=== PATIENT | female | born 1970 | race Caucasian/White ===

== ENCOUNTER 2020-06-10 13:24 | Inpatient (IN) ==
[2020-06-10] MEDS ORDERED: ONDANSETRON 4 MG/2 ML VIAL IV STA (13:31)
[2020-06-10] MEDS ORDERED: MORPHINE 4 MG/1 ML VIAL IV STA (13:31)
[2020-06-10] MEDS ORDERED: SODIUM CHLORIDE 0.9% 1,000 ML IV STA (13:31)
[2020-06-10 13:57] LABS: Basophils % 0.2 % (0.0-0.8); Eosinophils # 0.1 10*3/uL (0.0-0.87); Eosinophils % 0.4 % (0.00-10.9); Hematocrit 29.9 VOL% (35.7-47.0); Hemoglobin 9.4 GM/DL (12.0-16.0); Immature Granulocytes % 0.4 %; Immature Granulocytes Absolute 0.06 #; Lymphocytes # 1.7 10*3/uL (1.4-4.0); Lymphocytes % 12.7 % (21.3-54.2); Mean Corpuscular HGB Conc 31.4 GM/DL (32-36); Mean Corpuscular Volume 76.5 FL (87-102); Monocytes % 10.8 % (1.7-12.7); Neutrophils % 75.5 % (38.7-73.9); Platelet Count 577 T/CUMM (130-400); Red Blood Count 3.91 MC/CUMM (3.8-5.5); Red Cell Distribution Width 16.4 % (9.3-17.3); White Blood Count 13.4 T/CUMM (4-12)
[2020-06-10 14:20] LABS: Albumin 2.4 G/DL (3.4-5.0); Bilirubin,Total 0.8 MG/DL (0.2-1.0); Calcium 8.4 MG/DL (8.5-10.1); Osmolality,Calculated 259.7 MOS/KG (273-304); Potassium 3.2 MMOL/L (3.5-5.1); Total Protein 7.6 G/DL (6.4-8.3)
[2020-06-10] MEDS ORDERED: PIPERACILLIN/TAZOBACTAM 3,375 MG in SODIUM CHLORIDE 0.9% 100 ML IV STA (15:28)
[2020-06-10] MEDS ORDERED: GLUCAGON 1 MG VIAL IM PRN (15:36)
[2020-06-10] MEDS ORDERED: DEXTROSE 50% 25 GM/50 ML VIAL IV PRN (15:36)
[2020-06-10 15:41] LABS: Amorphous Crystals,Urine Occasional /HPF (Few); Bacteria,Urine Moderate /HPF (Few); Bilirubin,Urine Negative (Negative); Blood, Urine Small mg/dL (Negative); Glucose,Urine (UA) Negative (Negative); Ketones,Urine Negative (Negative); Nitrite,Urine Negative (Negative); Protein,Urine Negative; RBC,Urine 1 /HPF (0-4); Squamous Epithelial Cell,Urine Occasional /HPF (0-10); Urine Appearance Slightly Hazy (Clear); Urine Color Yellow (Yellow); Urine Specific Gravity 1.001 (1.001-1.035); Urine Urobilinogen < 2.0 EU/DL (0.2-1.0); WBC,Urine 14 /HPF (0-6)
[2020-06-10] MEDS ORDERED: NICOTINE 7 MG/24 HR PATCH TRANSDERM PRN (16:42)
[2020-06-10] MEDS: ENOXAPARIN 40 MG/0.4 ML SYRINGE SUBCUT SCH (18:19)
[2020-06-10] MEDS: SODIUM CHLORIDE 0.9% 1,000 ML IV SCH (18:19)
[2020-06-10] MEDS: FLUCONAZOLE INJ 200 MG in PREMIX 1 EACH IV SCH (18:19)
[2020-06-10] MEDS: MORPHINE 4 MG/1 ML VIAL IV PRN ×2 (18:20→22:21)
[2020-06-10] MEDS ORDERED: ALPRAZolam 0.5 MG TABLET PO SCH (21:00)
[2020-06-10] MEDS: busPIRone 10 MG TABLET PO SCH (21:02)
[2020-06-10] MEDS: GABAPENTIN 400 MG CAPSULE PO SCH (21:03)
[2020-06-10] MEDS: ONDANSETRON 4 MG/2 ML VIAL IV PRN (21:05)
[2020-06-11] MEDS: PIPERACILLIN/TAZOBACTAM 3,375 MG in SODIUM CHLORIDE 0.9% 100 ML IV SCH ×3 (01:06→20:21)
[2020-06-11] MEDS: MORPHINE 4 MG/1 ML VIAL IV PRN ×4 (03:10→20:21)
[2020-06-11] MEDS: SODIUM CHLORIDE 0.9% 1,000 ML IV SCH ×3 (04:18→22:22)
[2020-06-11 06:26] LABS: Basophils % 0.2 % (0.0-0.8); Eosinophils # 0.1 10*3/uL (0.0-0.87); Eosinophils % 1.1 % (0.00-10.9); Hematocrit 29.9 VOL% (35.7-47.0); Hemoglobin 9.2 GM/DL (12.0-16.0); Immature Granulocytes % 0.6 %; Immature Granulocytes Absolute 0.06 #; Lymphocytes # 1.7 10*3/uL (1.4-4.0); Lymphocytes % 17.1 % (21.3-54.2); Mean Corpuscular HGB Conc 30.8 GM/DL (32-36); Mean Corpuscular Volume 78.5 FL (87-102); Mean Platelet Volume 9.8 FL (9.6-12.0); Platelet Count 637 T/CUMM (130-400); Red Blood Count 3.81 MC/CUMM (3.8-5.5); Red Cell Distribution Width 16.7 % (9.3-17.3); White Blood Count 9.9 T/CUMM (4-12)
[2020-06-11 07:05] LABS: Albumin 2.3 G/DL (3.4-5.0); Bilirubin,Total 0.8 MG/DL (0.2-1.0); Calcium 8.3 MG/DL (8.5-10.1); Osmolality,Calculated 270.7 MOS/KG (273-304); Potassium 3.1 MMOL/L (3.5-5.1); Total Protein 7.3 G/DL (6.4-8.3)
[2020-06-11 07:11] LABS: Folate 9.3 NG/ML (5.38-24.0); Vitamin B12 477 PG/ML (211-911)
[2020-06-11 07:39] LABS: Sedimentation Rate-Westergren 86 MM/HR (0-20)
[2020-06-11] MEDS: ONDANSETRON 4 MG/2 ML VIAL IV PRN ×2 (07:53→19:44)
[2020-06-11] MEDS ORDERED: PANTOPRAZOLE 40 MG TABLET PO SCH (09:00)
[2020-06-11] MEDS: PANTOPRAZOLE 40 MG TABLET PO SCH (09:17)
[2020-06-11] MEDS: GABAPENTIN 400 MG CAPSULE PO SCH ×3 (09:17→20:20)
[2020-06-11] MEDS: busPIRone 10 MG TABLET PO SCH ×2 (09:17→20:21)
[2020-06-11] MEDS: POTASSIUM CHLORIDE RIDER 10 MEQ in PREMIX 1 EACH IV PRN ×3 (09:17→15:32)
[2020-06-11] MEDS: tiZANidine 4 MG TABLET PO PRN ×2 (09:55→20:21)
[2020-06-11 09:59] LABS: Hemoglobin A1 (Alkaline) 97.3 % (96.5-98.5); Hemoglobin A2 (Alkaline) 2.7 % (1.5-3.5)
[2020-06-11] MEDS: ALPRAZolam 0.5 MG TABLET PO SCH (10:06)
[2020-06-11] MEDS ORDERED: POTASSIUM CHLORIDE 20 MEQ TABLET PO ONE (16:49)
[2020-06-11] MEDS: ENOXAPARIN 40 MG/0.4 ML SYRINGE SUBCUT SCH (20:20)
[2020-06-11] MEDS: FLUCONAZOLE INJ 200 MG in PREMIX 1 EACH IV SCH (22:23)
[2020-06-12] MEDS: MORPHINE 4 MG/1 ML VIAL IV PRN ×3 (01:02→09:45)
[2020-06-12] MEDS ORDERED: ALPRAZolam 0.5 MG TABLET PO ONE (05:11)
[2020-06-12] MEDS: PIPERACILLIN/TAZOBACTAM 3,375 MG in SODIUM CHLORIDE 0.9% 100 ML IV SCH (05:15)
[2020-06-12 05:57] LABS: Basophils % 0.2 % (0.0-0.8); Eosinophils # 0.1 10*3/uL (0.0-0.87); Eosinophils % 1.6 % (0.00-10.9); Hematocrit 26.1 VOL% (35.7-47.0); Hemoglobin 8.3 GM/DL (12.0-16.0); Immature Granulocytes % 0.7 %; Immature Granulocytes Absolute 0.06 #; Lymphocytes # 1.9 10*3/uL (1.4-4.0); Lymphocytes % 21.5 % (21.3-54.2); Mean Corpuscular HGB Conc 31.8 GM/DL (32-36); Mean Corpuscular Volume 77.2 FL (87-102); Monocytes % 9.1 % (1.7-12.7); Neutrophils % 66.9 % (38.7-73.9); Platelet Count 535 T/CUMM (130-400); Red Blood Count 3.38 MC/CUMM (3.8-5.5); Red Cell Distribution Width 16.8 % (9.3-17.3); White Blood Count 8.6 T/CUMM (4-12)
[2020-06-12 06:08] LABS: Calcium 7.7 MG/DL (8.5-10.1); Osmolality,Calculated 265.1 MOS/KG (273-304); Potassium 3.6 MMOL/L (3.5-5.1)
[2020-06-12] MEDS ORDERED: MAGNESIUM SULF RIDER 4 GM in PREMIX 1 EACH IV ONE (07:38)
[2020-06-12] MEDS: PANTOPRAZOLE 40 MG TABLET PO SCH (08:41)
[2020-06-12] MEDS: busPIRone 10 MG TABLET PO SCH (08:41)
[2020-06-12] MEDS: GABAPENTIN 400 MG CAPSULE PO SCH (08:41)
[2020-06-12] MEDS: ALPRAZolam 0.5 MG TABLET PO SCH (08:41)
[2020-06-12 12:00] VITALS: BP 115/67
[2020-06-12] MEDS ORDERED: CEFUROXIME 500 MG TABLET PO SCH (21:00)
== END 2020-06-12 12:24 | disposition left against medical advice (07) | DRG 244 ==
LOC: EDBD → EDUNIT# → N.ED 13:24 → N.EDINP 15:36 → SUATTDRO 15:36 → N.EDINP 16:57 → N.5E 17:12
PROVIDERS: ADMIT Internal Medicine; ATTEND Internal Medicine

== ENCOUNTER 2020-07-31 07:21 | Inpatient (IN) ==
[2020-07-31] MEDS ORDERED: ONDANSETRON 4 MG/2 ML VIAL IV STA (07:44)
[2020-07-31] MEDS ORDERED: HYDROmorphone 2 MG/1 ML VIAL IV STA (07:44)
[2020-07-31] MEDS ORDERED: SODIUM CHLORIDE 0.9% 1,000 ML IV STA (07:44)
[2020-07-31] MEDS ORDERED: PIPERACILLIN/TAZOBACTAM 3,375 MG in SODIUM CHLORIDE 0.9% 100 ML IV STA (07:44)
[2020-07-31 08:29] LABS: Basophils % 0.5 % (0.0-0.8); Eosinophils # 0.2 10*3/uL (0.0-0.87); Eosinophils % 2.7 % (0.00-10.9); Hematocrit 28.3 VOL% (35.7-47.0); Hemoglobin 8.9 GM/DL (12.0-16.0); Immature Granulocytes % 0.5 %; Lymphocytes # 1.4 10*3/uL (1.4-4.0); Mean Corpuscular HGB Conc 31.4 GM/DL (32-36); Mean Corpuscular Volume 75.9 FL (87-102); Mean Platelet Volume 8.8 FL (9.6-12.0); Monocytes % 9.6 % (1.7-12.7); Neutrophils % 69.7 % (38.7-73.9); Platelet Count 532 T/CUMM (130-400); Red Blood Count 3.73 MC/CUMM (3.8-5.5); Red Cell Distribution Width 17.5 % (9.3-17.3); White Blood Count 8.1 T/CUMM (4-12)
[2020-07-31 08:30] LABS: Immature Granulocytes Absolute 0.04 #
[2020-07-31 08:32] LABS: Bacteria,Urine Many /HPF (Few); Bilirubin,Urine Negative (Negative); Blood, Urine Moderate mg/dL (Negative); Glucose,Urine (UA) Negative (Negative); Ketones,Urine Negative (Negative); Nitrite,Urine Negative (Negative); Protein,Urine Negative; RBC,Urine 18 /HPF (0-4); Squamous Epithelial Cell,Urine Occasional /HPF (0-10); Urine Appearance CLOUDY (Clear); Urine Color Yellow (Yellow); Urine Specific Gravity 1.005 (1.001-1.035); Urine Urobilinogen < 2.0 EU/DL (0.2-1.0); WBC,Urine 41 /HPF (0-6)
[2020-07-31 08:49] LABS: Alanine Aminotransferase 34 U/L (13-56); Albumin 2.3 G/DL (3.4-5.0); Alkaline Phosphatase 134 U/L (45-117); Aspartate Amino Transferase 42 U/L (0-37); Bilirubin,Total < 0.39 MG/DL (0.2-1.0); Blood Urea Nitrogen 5 MG/DL (7-18); Calcium 7.7 MG/DL (8.5-10.1); Carbon Dioxide 27 MMOL/L (21-32); Estimated Glom Filtration Rate 122 ML/MIN; Glucose 91 MG/DL (74-106); Osmolality,Calculated 277.3 MOS/KG (273-304); Potassium 3.2 MMOL/L (3.5-5.1); Sodium 141 MMOL/L (136-145); Total Protein 6.5 G/DL (6.4-8.2)
[2020-07-31 08:52] LABS: Anisocytosis 1+; Atypical Lymphocytes Few; Band Neutrophils 5 % (0-10); Hypochromasia 1+; Lymphocytes 14 % (20-55); Microcytosis 1+; Ovalocytes Slight; Segmented Neutrophils 73 % (50-85); Total Cells Counted 100
[2020-07-31] MEDS ORDERED: DEXTROSE 50% 25 GM/50 ML VIAL IV PRN (12:50)
[2020-07-31] MEDS ORDERED: ACETAMINOPHEN 325 MG TABLET PO PRN (12:50)
[2020-07-31] MEDS ORDERED: DOCUSATE SODIUM 100 MG CAPSULE PO PRN (12:50)
[2020-07-31] MEDS ORDERED: GLUCAGON 1 MG VIAL IM PRN (12:50)
[2020-07-31] MEDS: PIPERACILLIN/TAZOBACTAM 3,375 MG in SODIUM CHLORIDE 0.9% 100 ML IV SCH ×2 (14:25→21:34)
[2020-07-31] MEDS: ENOXAPARIN 30 MG/0.3 ML SYRINGE SUBCUT SCH (14:25)
[2020-07-31] MEDS: SODIUM CHLORIDE 0.9% 1,000 ML IV SCH ×2 (14:25→23:35)
[2020-07-31] MEDS: ONDANSETRON 4 MG/2 ML VIAL IV PRN ×2 (14:27→18:19)
[2020-07-31] MEDS ORDERED: POTASSIUM CHLORIDE RIDER 10 MEQ in PREMIX 1 EACH IV PRN (15:19)
[2020-07-31] MEDS ORDERED: PERMETHRIN 1% LOTION 59 ML BOTTLE TOP ONE (15:44)
[2020-07-31] MEDS ORDERED: POTASSIUM CHLORIDE 20 MEQ TABLET PO ONE (15:50)
[2020-07-31] MEDS ORDERED: ALBUTEROL/IPRATROPIUM 3 ML NEB RESP TX PRN (16:29)
[2020-07-31] MEDS ORDERED: LEVOFLOXACIN INJ 500 MG in PREMIX 1 EACH IV ONE (19:00)
[2020-07-31] MEDS: GABAPENTIN 400 MG CAPSULE PO SCH (20:45)
[2020-07-31] MEDS: busPIRone 10 MG TABLET PO SCH (20:45)
[2020-07-31] MEDS: ZALEPLON 5 MG CAPSULE PO PRN (20:45)
[2020-07-31] MEDS: HYDROmorphone 2 MG/1 ML VIAL IV PRN (23:25)
[2020-08-01] MEDS: ONDANSETRON 4 MG/2 ML VIAL IV PRN ×4 (03:30→21:16)
[2020-08-01] MEDS: SODIUM CHLORIDE 0.9% 1,000 ML IV SCH ×2 (05:30→13:25)
[2020-08-01] MEDS: PIPERACILLIN/TAZOBACTAM 3,375 MG in SODIUM CHLORIDE 0.9% 100 ML IV SCH ×4 (05:43→22:17)
[2020-08-01 06:05] LABS: Basophils % 0.4 % (0.0-0.8); Eosinophils # 0.2 10*3/uL (0.0-0.87); Eosinophils % 3.2 % (0.00-10.9); Hematocrit 26.9 VOL% (35.7-47.0); Hemoglobin 8.5 GM/DL (12.0-16.0); Immature Granulocytes % 0.4 %; Immature Granulocytes Absolute 0.03 #; Lymphocytes # 1.4 10*3/uL (1.4-4.0); Lymphocytes % 19.4 % (21.3-54.2); Mean Corpuscular HGB Conc 31.6 GM/DL (32-36); Mean Corpuscular Volume 76.2 FL (87-102); Mean Platelet Volume 9.9 FL (9.6-12.0); Monocytes % 10.7 % (1.7-12.7); Neutrophils % 65.9 % (38.7-73.9); Platelet Count 530 T/CUMM (130-400); Red Blood Count 3.53 MC/CUMM (3.8-5.5); Red Cell Distribution Width 17.7 % (9.3-17.3); White Blood Count 7.2 T/CUMM (4-12)
[2020-08-01 06:41] LABS: Osmolality,Calculated 273.4 MOS/KG (273-304); Potassium 4.1 MMOL/L (3.5-5.1); Thyroid Stimulating Hormone 2.42 uIU/ml (0.358-3.74)
[2020-08-01] MEDS ORDERED: MAGNESIUM SULF RIDER 2 GM in PREMIX 1 EACH IV PRN (07:55)
[2020-08-01] MEDS ORDERED: MAGNESIUM SULF RIDER 4 GM in PREMIX 1 EACH IV PRN (07:55)
[2020-08-01] MEDS: SIMETHICONE CHEW 125 MG TABLET PO PRN (08:10)
[2020-08-01] MEDS: ALPRAZolam 0.5 MG TABLET PO SCH (08:10)
[2020-08-01] MEDS: busPIRone 10 MG TABLET PO SCH ×2 (08:10→21:11)
[2020-08-01] MEDS: HYDROmorphone 2 MG/1 ML VIAL IV PRN ×2 (09:33→21:20)
[2020-08-01 10:55] LABS: Barbiturates Screen,Urine Negative (Negative); Benzodiazepines Screen,Urine Negative (Negative); Cannabinoid Screen,Urine Positive (Negative); Opiate Screen,Urine Positive (Negative); Phencyclidine Screen,Urine Negative (Negative)
[2020-08-01] MEDS: GABAPENTIN 400 MG CAPSULE PO SCH ×3 (13:13→21:11)
[2020-08-01] MEDS: ENOXAPARIN 30 MG/0.3 ML SYRINGE SUBCUT SCH (13:24)
[2020-08-01] MEDS: ZALEPLON 5 MG CAPSULE PO PRN (21:11)
[2020-08-02] MEDS: ONDANSETRON 4 MG/2 ML VIAL IV PRN ×2 (02:31→17:15)
[2020-08-02] MEDS: HYDROmorphone 2 MG/1 ML VIAL IV PRN ×5 (02:32→22:08)
[2020-08-02] MEDS: SIMETHICONE CHEW 125 MG TABLET PO PRN ×2 (03:36→20:14)
[2020-08-02 05:49] LABS: Basophils % 0.2 % (0.0-0.8); Eosinophils # 0.2 10*3/uL (0.0-0.87); Eosinophils % 2.2 % (0.00-10.9); Hematocrit 27.8 VOL% (35.7-47.0); Hemoglobin 8.6 GM/DL (12.0-16.0); Immature Granulocytes % 0.4 %; Immature Granulocytes Absolute 0.04 #; Lymphocytes # 1.2 10*3/uL (1.4-4.0); Lymphocytes % 13.3 % (21.3-54.2); Mean Corpuscular HGB Conc 30.9 GM/DL (32-36); Mean Corpuscular Volume 76.8 FL (87-102); Mean Platelet Volume 9.3 FL (9.6-12.0); Monocytes % 9.2 % (1.7-12.7); Neutrophils % 74.7 % (38.7-73.9); Platelet Count 579 T/CUMM (130-400); Red Blood Count 3.62 MC/CUMM (3.8-5.5); Red Cell Distribution Width 17.8 % (9.3-17.3); White Blood Count 9.1 T/CUMM (4-12)
[2020-08-02 06:08] LABS: Albumin 2.3 G/DL (3.4-5.0); Bilirubin,Direct 0.12 MG/DL (0.0-0.20); Bilirubin,Indirect 1.1 MG/DL (0.0-1.0); Bilirubin,Total 1.2 MG/DL (0.2-1.0); Calcium 8.1 MG/DL (8.5-10.1); Osmolality,Calculated 276.4 MOS/KG (273-304); Potassium 4.2 MMOL/L (3.5-5.1); Total Protein 6.7 G/DL (6.4-8.2)
[2020-08-02] MEDS: PIPERACILLIN/TAZOBACTAM 3,375 MG in SODIUM CHLORIDE 0.9% 100 ML IV SCH ×3 (06:12→22:00)
[2020-08-02] MEDS: SODIUM CHLORIDE 0.9% 1,000 ML IV SCH ×2 (07:01→19:48)
[2020-08-02] MEDS: ALPRAZolam 0.5 MG TABLET PO SCH (08:37)
[2020-08-02] MEDS: GABAPENTIN 400 MG CAPSULE PO SCH ×3 (08:37→20:14)
[2020-08-02] MEDS: busPIRone 10 MG TABLET PO SCH ×2 (08:37→20:15)
[2020-08-02] MEDS ORDERED: ALPRAZolam 0.5 MG TABLET PO PRN (09:54)
[2020-08-02] MEDS: PANTOPRAZOLE 40 MG TABLET PO SCH (11:25)
[2020-08-02] MEDS: ENOXAPARIN 30 MG/0.3 ML SYRINGE SUBCUT SCH (14:09)
[2020-08-02] MEDS: ZALEPLON 5 MG CAPSULE PO PRN (20:14)
[2020-08-03] MEDS: SODIUM CHLORIDE 0.9% 1,000 ML IV SCH ×2 (00:14→03:50)
[2020-08-03] MEDS: HYDROmorphone 2 MG/1 ML VIAL IV PRN ×4 (02:05→15:58)
[2020-08-03] MEDS ORDERED: LEVOFLOXACIN INJ 500 MG in PREMIX 1 EACH IV ONE (06:00)
[2020-08-03] MEDS: PIPERACILLIN/TAZOBACTAM 3,375 MG in SODIUM CHLORIDE 0.9% 100 ML IV SCH ×2 (06:11→10:36)
[2020-08-03 06:13] LABS: Basophils % 0.3 % (0.0-0.8); Eosinophils # 0.2 10*3/uL (0.0-0.87); Eosinophils % 2.5 % (0.00-10.9); Hematocrit 26.9 VOL% (35.7-47.0); Hemoglobin 8.1 GM/DL (12.0-16.0); Immature Granulocytes % 0.3 %; Immature Granulocytes Absolute 0.02 #; Lymphocytes # 1.6 10*3/uL (1.4-4.0); Lymphocytes % 20.5 % (21.3-54.2); Mean Corpuscular HGB Conc 30.1 GM/DL (32-36); Mean Corpuscular Volume 77.5 FL (87-102); Mean Platelet Volume 9.2 FL (9.6-12.0); Monocytes % 12.7 % (1.7-12.7); Neutrophils % 63.7 % (38.7-73.9); Platelet Count 519 T/CUMM (130-400); Red Blood Count 3.47 MC/CUMM (3.8-5.5); White Blood Count 7.6 T/CUMM (4-12)
[2020-08-03 06:41] LABS: Alanine Aminotransferase 24 U/L (13-56); Albumin 2.2 G/DL (3.4-5.0); Alkaline Phosphatase 252 U/L (45-117); Aspartate Amino Transferase 36 U/L (0-37); Bilirubin,Indirect 0.2 MG/DL (0.0-1.0); Bilirubin,Total < 0.39 MG/DL (0.2-1.0); Blood Urea Nitrogen 4 MG/DL (7-18); Calcium 8.2 MG/DL (8.5-10.1); Carbon Dioxide 23 MMOL/L (21-32); Estimated Glom Filtration Rate 110 ML/MIN; Glucose 93 MG/DL (74-106); Osmolality,Calculated 271.7 MOS/KG (273-304); Potassium 4.1 MMOL/L (3.5-5.1); Sodium 138 MMOL/L (136-145); Total Protein 6.5 G/DL (6.4-8.2)
[2020-08-03] MEDS ORDERED: HYDROmorphone 2 MG/1 ML VIAL IV ONE (07:26)
[2020-08-03] MEDS ORDERED: ENOXAPARIN 40 MG/0.4 ML SYRINGE SUBCUT SCH (09:00)
[2020-08-03] MEDS ORDERED: FAMOTIDINE 20 MG/2 ML VIAL IV ONE ×2 (12:00→12:07)
[2020-08-03] MEDS ORDERED: SUCCINYLCHOLINE 200 MG/10 ML VIAL ONE (12:03)
[2020-08-03] MEDS ORDERED: MIDAZOLAM 2 MG/2 ML VIAL ONE (12:03)
[2020-08-03] MEDS ORDERED: fentaNYL 100 MCG/2 ML VIAL ONE (12:04)
[2020-08-03] MEDS ORDERED: SODIUM CHLORIDE 0.9% 1,000 ML IV ONE (12:31)
[2020-08-03] MEDS ORDERED: ONDANSETRON 4 MG/2 ML VIAL ONE (12:45)
[2020-08-03] MEDS ORDERED: propofoL 200 MG/20 ML VIAL IV ONE (12:45)
[2020-08-03] MEDS ORDERED: LIDOCAINE 2% 5 ML VIAL ONE (12:45)
[2020-08-03] MEDS ORDERED: SEVOFLURANE 1 UNIT/15 MINUTE INH ONE (13:20)
[2020-08-03] MEDS ORDERED: LORazepam 2 MG/1 ML VIAL IV ONE (13:46)
[2020-08-03] MEDS ORDERED: ONDANSETRON 4 MG/2 ML VIAL IV PRN (13:47)
[2020-08-03] MEDS ORDERED: HYDROmorphone 2 MG/1 ML VIAL IV PRN (13:47)
[2020-08-03] MEDS ORDERED: LORazepam 2 MG/1 ML VIAL ONE (13:49)
[2020-08-03 14:22] VITALS: BP 108/93
[2020-08-03] MEDS: GABAPENTIN 400 MG CAPSULE PO SCH ×2 (14:44→14:48)
[2020-08-03] MEDS: ALPRAZolam 0.5 MG TABLET PO SCH (14:44)
[2020-08-03] MEDS: PANTOPRAZOLE 40 MG TABLET PO SCH (14:44)
[2020-08-03] MEDS: busPIRone 10 MG TABLET PO SCH (14:44)
== END 2020-08-03 18:02 | disposition home or self-care (01) | DRG 244 ==
LOC: N.ED 07:21 → EDUNIT# 07:21 → EDBD 07:21 → SUATTDRO 11:10 → N.EDINP 11:10 → N.5E 13:14
PROVIDERS: ADMIT Internal Medicine; ATTEND Hospitalist

== ENCOUNTER 2020-10-11 09:46 | Inpatient (IN) ==
[2020-10-11] MEDS ORDERED: ONDANSETRON 4 MG/2 ML VIAL IV STA ×2 (10:12→12:35)
[2020-10-11] MEDS ORDERED: MORPHINE 4 MG/1 ML VIAL IV ONE (10:12)
[2020-10-11] MEDS ORDERED: SODIUM CHLORIDE 0.9% 1,000 ML IV STA (10:12)
[2020-10-11 10:21] LABS: Basophils % 0.4 % (0.0-0.8); Eosinophils % 0.4 % (0.00-10.9); Hematocrit 33.2 VOL% (35.7-47.0); Hemoglobin 10.9 GM/DL (12.0-16.0); Immature Granulocytes % 0.4 %; Immature Granulocytes Absolute 0.03 #; Lymphocytes # 1.2 10*3/uL (1.4-4.0); Lymphocytes % 14.3 % (21.3-54.2); Mean Corpuscular HGB Conc 32.8 GM/DL (32-36); Mean Corpuscular Volume 75.8 FL (87-102); Mean Platelet Volume 8.6 FL (9.6-12.0); Monocytes % 9.7 % (1.7-12.7); Neutrophils % 74.8 % (38.7-73.9); Platelet Count 619 T/CUMM (130-400); Red Blood Count 4.38 MC/CUMM (3.8-5.5); Red Cell Distribution Width 21.6 % (9.3-17.3); White Blood Count 8.3 T/CUMM (4-12)
[2020-10-11 10:34] LABS: Barbiturates Screen,Urine Negative (Negative); Benzodiazepines Screen,Urine Negative (Negative); Cannabinoid Screen,Urine Positive (Negative); Opiate Screen,Urine Negative (Negative); Phencyclidine Screen,Urine Negative (Negative)
[2020-10-11 10:35] LABS: Bacteria,Urine Moderate /HPF (Few); Bilirubin,Urine Negative (Negative); Blood, Urine Small mg/dL (Negative); Glucose,Urine (UA) Negative (Negative); Ketones,Urine 20 mg/dL (Negative); Mucus,Urine Occasional /LPF (Occasional); Nitrite,Urine Negative (Negative); Protein,Urine 100 MG/DL; RBC,Urine 21 /HPF (0-4); Squamous Epithelial Cell,Urine Occasional /HPF (0-10); Urine Appearance CLOUDY (Clear); Urine Color Amber (Yellow); Urine Specific Gravity 1.023 (1.001-1.035)
[2020-10-11 10:41] LABS: Amylase 15 U/L (25-115)
[2020-10-11 10:45] LABS: Albumin 2.6 G/DL (3.4-5.0); Bilirubin,Total 0.5 MG/DL (0.2-1.0); Calcium 8.4 MG/DL (8.5-10.1); Osmolality,Calculated 271.7 MOS/KG (273-304); Potassium 3.1 MMOL/L (3.5-5.1); Total Protein 7.7 G/DL (6.4-8.2)
[2020-10-11] MEDS ORDERED: LEVOFLOXACIN INJ 750 MG/150 ML PREMIX IV STA (11:14)
[2020-10-11] MEDS ORDERED: POTASSIUM CHLORIDE 20 MEQ TABLET PO STA (11:14)
[2020-10-11] MEDS ORDERED: PANTOPRAZOLE 40 MG VIAL IV STA (12:35)
[2020-10-11] MEDS ORDERED: ACETAMINOPHEN 325 MG TABLET PO PRN (12:54)
[2020-10-11] MEDS ORDERED: GLUCAGON 1 MG VIAL IM PRN (12:54)
[2020-10-11] MEDS ORDERED: NICOTINE 21 MG/24 HR PATCH TRANSDERM PRN (12:54)
[2020-10-11] MEDS ORDERED: DEXTROSE 50% 25 GM/50 ML VIAL IV PRN (12:54)
[2020-10-11] MEDS ORDERED: hydrALAZINE 20 MG/1 ML VIAL IV PRN (12:58)
[2020-10-11] MEDS ORDERED: ENOXAPARIN 30 MG/0.3 ML SYRINGE ONE (13:13)
[2020-10-11] MEDS ORDERED: ENOXAPARIN 30 MG/0.3 ML SYRINGE SUBCUT STA (13:17)
[2020-10-11] MEDS ORDERED: POTASSIUM CHLORIDE RIDER 10 MEQ/100 ML PREMIX IV PRN (13:33)
[2020-10-11] MEDS ORDERED: POTASSIUM CHLORIDE 20 MEQ TABLET PO PRN (13:33)
[2020-10-11] MEDS: PIPERACILLIN/TAZOBACTAM 3,375 MG in SODIUM CHLORIDE 0.9% 100 ML IV SCH ×2 (13:41→20:45)
[2020-10-11] MEDS: MORPHINE 4 MG/1 ML VIAL IV PRN ×2 (14:47→19:50)
[2020-10-11] MEDS: amLODIPine 5 MG TABLET PO SCH (14:47)
[2020-10-11] MEDS: SODIUM CHLORIDE 0.9% 1,000 ML IV SCH (16:04)
[2020-10-11] MEDS: ONDANSETRON 4 MG/2 ML VIAL IV PRN (19:50)
[2020-10-12] MEDS: MORPHINE 4 MG/1 ML VIAL IV PRN ×4 (00:05→20:59)
[2020-10-12] MEDS: PIPERACILLIN/TAZOBACTAM 3,375 MG in SODIUM CHLORIDE 0.9% 100 ML IV SCH ×3 (05:15→21:01)
[2020-10-12 07:36] LABS: Basophils % 0.3 % (0.0-0.8); Eosinophils # 0.1 10*3/uL (0.0-0.87); Eosinophils % 1.4 % (0.00-10.9); Hematocrit 31.2 VOL% (35.7-47.0); Immature Granulocytes % 0.2 %; Immature Granulocytes Absolute 0.01 #; Lymphocytes # 1.2 10*3/uL (1.4-4.0); Lymphocytes % 18.4 % (21.3-54.2); Mean Corpuscular HGB Conc 32.1 GM/DL (32-36); Mean Corpuscular Volume 78.8 FL (87-102); Mean Platelet Volume 8.7 FL (9.6-12.0); Monocytes % 13.6 % (1.7-12.7); Neutrophils % 66.1 % (38.7-73.9); Platelet Count 545 T/CUMM (130-400); Red Blood Count 3.96 MC/CUMM (3.8-5.5); Red Cell Distribution Width 21.9 % (9.3-17.3); White Blood Count 6.6 T/CUMM (4-12)
[2020-10-12 07:53] LABS: Albumin 2.2 G/DL (3.4-5.0); Bilirubin,Total 0.8 MG/DL (0.2-1.0); Calcium 8.3 MG/DL (8.5-10.1); Osmolality,Calculated 268.8 MOS/KG (273-304); Potassium 4.2 MMOL/L (3.5-5.1); Total Protein 6.6 G/DL (6.4-8.2)
[2020-10-12 07:56] LABS: % Iron Saturation 10.1 % (18-50); Ferritin 11.7 ng/ml (8-252)
[2020-10-12 08:11] LABS: Folate 6.86 NG/ML (5.38-24.0)
[2020-10-12] MEDS: amLODIPine 5 MG TABLET PO SCH (08:27)
[2020-10-12] MEDS: ONDANSETRON 4 MG/2 ML VIAL IV PRN ×2 (08:29→21:00)
[2020-10-12] MEDS: ALPRAZolam 0.5 MG TABLET PO SCH (10:34)
[2020-10-12] MEDS: busPIRone 10 MG TABLET PO SCH ×2 (10:34→21:00)
[2020-10-12] MEDS: GABAPENTIN 400 MG CAPSULE PO SCH ×3 (10:35→21:00)
[2020-10-12] MEDS: HydrOXYzine PAMOATE 25 MG CAPSULE PO PRN ×2 (10:41→15:49)
[2020-10-12] MEDS: SODIUM CHLORIDE 0.9% 1,000 ML IV SCH ×2 (15:09→15:10)
[2020-10-12] MEDS: ALUMINUM/MAGNES/SIMETH MAX STR 30 ML UDCUP PO PRN (17:55)
[2020-10-12] MEDS: ENOXAPARIN 40 MG/0.4 ML SYRINGE SUBCUT SCH (21:01)
[2020-10-13] MEDS: MORPHINE 4 MG/1 ML VIAL IV PRN ×3 (02:05→18:26)
[2020-10-13] MEDS: ONDANSETRON 4 MG/2 ML VIAL IV PRN ×4 (02:09→18:27)
[2020-10-13] MEDS: HydrOXYzine PAMOATE 25 MG CAPSULE PO PRN (02:12)
[2020-10-13] MEDS: SODIUM CHLORIDE 0.9% 1,000 ML IV SCH ×4 (03:46→23:00)
[2020-10-13] MEDS: PIPERACILLIN/TAZOBACTAM 3,375 MG in SODIUM CHLORIDE 0.9% 100 ML IV SCH ×3 (04:44→21:30)
[2020-10-13 05:51] LABS: Basophils % 0.3 % (0.0-0.8); Eosinophils # 0.1 10*3/uL (0.0-0.87); Eosinophils % 1.3 % (0.00-10.9); Hematocrit 28.9 VOL% (35.7-47.0); Immature Granulocytes % 0.3 %; Immature Granulocytes Absolute 0.02 #; Lymphocytes # 1.5 10*3/uL (1.4-4.0); Lymphocytes % 19.3 % (21.3-54.2); Mean Corpuscular HGB Conc 31.1 GM/DL (32-36); Mean Corpuscular Volume 79.8 FL (87-102); Mean Platelet Volume 9.1 FL (9.6-12.0); Monocytes % 10.5 % (1.7-12.7); Neutrophils % 68.3 % (38.7-73.9); Platelet Count 505 T/CUMM (130-400); Red Blood Count 3.62 MC/CUMM (3.8-5.5); Red Cell Distribution Width 22.2 % (9.3-17.3)
[2020-10-13 06:08] LABS: Bilirubin,Total 0.4 MG/DL (0.2-1.0); Calcium 7.7 MG/DL (8.5-10.1); Osmolality,Calculated 274.5 MOS/KG (273-304); Potassium 3.4 MMOL/L (3.5-5.1); Total Protein 6.1 G/DL (6.4-8.2)
[2020-10-13 06:30] LABS: Hypochromasia 1+
[2020-10-13 06:31] LABS: Microcytosis 1+
[2020-10-13 06:32] LABS: Platelet Estimate Increased
[2020-10-13] MEDS ORDERED: ERTAPENEM 1,000 MG in SODIUM CHLORIDE 0.9% 100 ML IV ONE (08:12)
[2020-10-13] MEDS ORDERED: ALPRAZolam 0.5 MG TABLET PO SCH (09:00)
[2020-10-13] MEDS: GABAPENTIN 400 MG CAPSULE PO SCH ×3 (09:04→21:33)
[2020-10-13] MEDS: amLODIPine 5 MG TABLET PO SCH (09:04)
[2020-10-13] MEDS: ALPRAZolam 0.5 MG TABLET PO SCH (09:04)
[2020-10-13] MEDS: busPIRone 10 MG TABLET PO SCH ×2 (09:04→21:33)
[2020-10-13] MEDS: ALUMINUM/MAGNES/SIMETH MAX STR 30 ML UDCUP PO PRN (09:58)
[2020-10-13] MEDS ORDERED: INDOCYANINE GREEN 25 MG VIAL IV ONE ×2 (10:26→13:24)
[2020-10-13] MEDS ORDERED: ROCURONIUM 50 MG/5 ML VIAL IV ONE (10:29)
[2020-10-13] MEDS ORDERED: LIDOCAINE 2% 5 ML VIAL ONE (10:29)
[2020-10-13] MEDS ORDERED: fentaNYL 100 MCG/2 ML VIAL ONE ×4 (10:29→15:05)
[2020-10-13] MEDS ORDERED: propofoL 200 MG/20 ML VIAL IV ONE (10:29)
[2020-10-13] MEDS ORDERED: MIDAZOLAM 2 MG/2 ML VIAL ONE (10:30)
[2020-10-13] MEDS ORDERED: ONDANSETRON 4 MG/2 ML VIAL ONE (10:31)
[2020-10-13] MEDS ORDERED: DEXAMETHASONE 4 MG/1 ML VIAL ONE (12:24)
[2020-10-13] MEDS ORDERED: LIDOCAINE 1% 5 ML VIAL ONE (12:24)
[2020-10-13] MEDS ORDERED: DEXMEDETOMIDINE 200 MCG/2 ML VIAL ONE (12:24)
[2020-10-13] MEDS ORDERED: ROPIVACAINE 0.5% 30 ML VIAL ONE (12:24)
[2020-10-13] MEDS ORDERED: ALBUMIN 5% 12.5 GM/250 ML VIAL IV ONE (13:23)
[2020-10-13] MEDS ORDERED: TISSUE ADHESIVE 1 EACH APPLICATOR TOP ONE ×2 (13:24→15:25)
[2020-10-13] MEDS ORDERED: PHENYLEPHRINE 10 MG/1 ML VIAL IV ONE (13:40)
[2020-10-13] MEDS ORDERED: PHENYLEPHRINE 1 MG/10 ML SYRINGE IV ONE (13:40)
[2020-10-13] MEDS: PANTOPRAZOLE 40 MG VIAL IV SCH (14:14)
[2020-10-13] MEDS ORDERED: LACTATED RINGERS 1,000 ML IV ONE (15:43)
[2020-10-13] MEDS ORDERED: ACETAMINOPHEN INJ 0 MG/0 ML VIAL IV ONE ×2 (15:53→15:54)
[2020-10-13] MEDS ORDERED: HYDROmorphone 2 MG/1 ML VIAL IV PRN (17:37)
[2020-10-13] MEDS ORDERED: ONDANSETRON 4 MG/2 ML VIAL IV PRN (17:37)
[2020-10-13 18:48] LABS: Basophils % 0.1 % (0.0-0.8); Hematocrit 33.9 VOL% (35.7-47.0); Hemoglobin 10.5 GM/DL (12.0-16.0); Immature Granulocytes % 0.5 %; Lymphocytes # 1.2 10*3/uL (1.4-4.0); Mean Corpuscular Volume 80.3 FL (87-102); Mean Platelet Volume 8.8 FL (9.6-12.0); Monocytes % 1.9 % (1.7-12.7); Neutrophils % 91.5 % (38.7-73.9); Platelet Count 593 T/CUMM (130-400); Red Blood Count 4.22 MC/CUMM (3.8-5.5); Red Cell Distribution Width 22.7 % (9.3-17.3); White Blood Count 20.1 T/CUMM (4-12)
[2020-10-13 19:00] LABS: Calcium 8.1 MG/DL (8.5-10.1); Osmolality,Calculated 274.5 MOS/KG (273-304); Potassium 4.8 MMOL/L (3.5-5.1)
[2020-10-13 19:56] LABS: Anisocytosis 1+; Band Neutrophils 3 % (0-10); Hypochromasia 1+; Lymphocytes 2 % (20-55); Microcytosis 1+; Polychromasia Few; Segmented Neutrophils 92 % (50-85); Total Cells Counted 100; Toxic Granulation 1+
[2020-10-13 19:57] LABS: Platelet Estimate Increased
[2020-10-13] MEDS ORDERED: PHENOL 1.4% THROAT SPRAY 177 ML BOTTLE PO PRN (21:33)
[2020-10-13] MEDS: HYDROmorphone 2 MG/1 ML VIAL IV PRN (21:33)
[2020-10-13] MEDS: OXYBUTYNIN XL 15 MG TABLET PO SCH (21:34)
[2020-10-13] MEDS: ENOXAPARIN 40 MG/0.4 ML SYRINGE SUBCUT SCH ×2 (21:35→21:37)
[2020-10-14] MEDS: HYDROmorphone 2 MG/1 ML VIAL IV PRN ×8 (00:19→22:44)
[2020-10-14] MEDS: PIPERACILLIN/TAZOBACTAM 3,375 MG in SODIUM CHLORIDE 0.9% 100 ML IV SCH ×3 (04:46→21:56)
[2020-10-14] MEDS: PANTOPRAZOLE 40 MG VIAL IV SCH (06:04)
[2020-10-14 08:06] LABS: Basophils % 0.1 % (0.0-0.8); Hematocrit 33.7 VOL% (35.7-47.0); Hemoglobin 10.2 GM/DL (12.0-16.0); Immature Granulocytes % 0.4 %; Immature Granulocytes Absolute 0.06 #; Lymphocytes % 14.4 % (21.3-54.2); Mean Corpuscular HGB Conc 30.3 GM/DL (32-36); Mean Corpuscular Volume 80.4 FL (87-102); Mean Platelet Volume 9.5 FL (9.6-12.0); Monocytes % 7.2 % (1.7-12.7); Neutrophils % 77.9 % (38.7-73.9); Platelet Count 503 T/CUMM (130-400); Red Blood Count 4.19 MC/CUMM (3.8-5.5); Red Cell Distribution Width 22.6 % (9.3-17.3); White Blood Count 13.6 T/CUMM (4-12)
[2020-10-14 08:30] LABS: Albumin 2.5 G/DL (3.4-5.0); Bilirubin,Total 0.7 MG/DL (0.2-1.0); Calcium 8.6 MG/DL (8.5-10.1); Osmolality,Calculated 274.5 MOS/KG (273-304); Potassium 4.5 MMOL/L (3.5-5.1)
[2020-10-14 08:41] LABS: Hypochromasia 1+; Microcytosis 1+
[2020-10-14 08:42] LABS: Platelet Estimate Increased
[2020-10-14] MEDS: amLODIPine 5 MG TABLET PO SCH (09:23)
[2020-10-14] MEDS: busPIRone 10 MG TABLET PO SCH ×2 (09:24→21:57)
[2020-10-14] MEDS: ALPRAZolam 0.5 MG TABLET PO SCH (09:24)
[2020-10-14] MEDS: HydrOXYzine PAMOATE 25 MG CAPSULE PO PRN ×2 (09:24→21:57)
[2020-10-14] MEDS: GABAPENTIN 400 MG CAPSULE PO SCH ×3 (09:26→21:57)
[2020-10-14] MEDS: SODIUM CHLORIDE 0.9% 1,000 ML IV SCH ×2 (12:05→23:14)
[2020-10-14] MEDS: ALUMINUM/MAGNES/SIMETH MAX STR 30 ML UDCUP PO PRN (12:32)
[2020-10-14] MEDS: OXYBUTYNIN XL 15 MG TABLET PO SCH (21:57)
[2020-10-14] MEDS: ENOXAPARIN 40 MG/0.4 ML SYRINGE SUBCUT SCH (21:57)
[2020-10-14] MEDS: ONDANSETRON 4 MG/2 ML VIAL IV PRN (22:44)
[2020-10-15] MEDS: SODIUM CHLORIDE 0.9% 1,000 ML IV SCH ×2 (01:49→09:15)
[2020-10-15] MEDS: ONDANSETRON 4 MG/2 ML VIAL IV PRN ×2 (01:50→05:56)
[2020-10-15] MEDS: HYDROmorphone 2 MG/1 ML VIAL IV PRN ×3 (01:51→05:58)
[2020-10-15] MEDS: PIPERACILLIN/TAZOBACTAM 3,375 MG in SODIUM CHLORIDE 0.9% 100 ML IV SCH (04:03)
[2020-10-15] MEDS: PANTOPRAZOLE 40 MG VIAL IV SCH (06:00)
[2020-10-15 06:17] LABS: Basophils % 0.1 % (0.0-0.8); Eosinophils # 0.1 10*3/uL (0.0-0.87); Eosinophils % 0.6 % (0.00-10.9); Hematocrit 26.9 VOL% (35.7-47.0); Immature Granulocytes % 0.6 %; Immature Granulocytes Absolute 0.07 #; Lymphocytes # 2.4 10*3/uL (1.4-4.0); Lymphocytes % 18.7 % (21.3-54.2); Mean Corpuscular HGB Conc 30.5 GM/DL (32-36); Mean Corpuscular Volume 81.3 FL (87-102); Mean Platelet Volume 8.9 FL (9.6-12.0); Monocytes % 7.8 % (1.7-12.7); Neutrophils % 72.2 % (38.7-73.9); Platelet Count 508 T/CUMM (130-400); Red Cell Distribution Width 22.2 % (9.3-17.3); White Blood Count 12.7 T/CUMM (4-12)
[2020-10-15 06:25] LABS: Albumin 1.9 G/DL (3.4-5.0); Bilirubin,Total 0.4 MG/DL (0.2-1.0); Calcium 7.7 MG/DL (8.5-10.1); Osmolality,Calculated 271.8 MOS/KG (273-304); Total Protein 6.1 G/DL (6.4-8.2)
[2020-10-15 06:39] LABS: Red Blood Count 3.31 MC/CUMM (3.8-5.5)
[2020-10-15 06:40] LABS: Hemoglobin 8.2 GM/DL (12.0-16.0)
[2020-10-15 06:43] LABS: Hypochromasia 1+; Microcytosis 1+; Platelet Estimate Increased
[2020-10-15] MEDS: amLODIPine 5 MG TABLET PO SCH (09:00)
[2020-10-15] MEDS: busPIRone 10 MG TABLET PO SCH (09:09)
[2020-10-15] MEDS ORDERED: oxyCODONE/ACETAMINOPHEN 5-325 MG TABLET PO PRN (09:09)
[2020-10-15] MEDS: ALPRAZolam 0.5 MG TABLET PO SCH (09:09)
[2020-10-15] MEDS: HydrOXYzine PAMOATE 25 MG CAPSULE PO PRN (09:09)
[2020-10-15] MEDS: GABAPENTIN 400 MG CAPSULE PO SCH (09:09)
[2020-10-15] MEDS ORDERED: PERMETHRIN 1% LOTION 59 ML BOTTLE TOP ONE (10:00)
[2020-10-15 11:49] VITALS: BP 137/100
[2020-10-16] MEDS ORDERED: PANTOPRAZOLE 40 MG TABLET PO SCH (06:30)
== END 2020-10-15 13:40 | disposition home health service (06) | DRG 231 ==
LOC: N.ED 09:46 → N.EDINP 12:34 → SUATTDRO 12:34 → N.5E 13:49
PROVIDERS: ADMIT Internal Medicine; ATTEND Internal Medicine

== ENCOUNTER 2021-01-10 05:06 | Observation (INO) ==
[2021-01-10] MEDS ORDERED: SODIUM CHLORIDE 0.9% 1,000 ML IV STA (05:41)
[2021-01-10 05:47] LABS: Bilirubin,Urine Negative (Negative); Blood, Urine Large mg/dL (Negative); Glucose,Urine (UA) Negative (Negative); Ketones,Urine Negative (Negative); Nitrite,Urine Negative (Negative); Protein,Urine >500 MG/DL; RBC,Urine 15770 /HPF (0-4); Urine Appearance Turbid (Clear); Urine Color Red (Yellow); Urine Urobilinogen 0.2 EU/DL (0.2-1.0)
[2021-01-10 06:21] LABS: INR 0.9; PT Patient Result 9.6 SECS (10.5-12.0); Partial Thromboplastin Time 35.6 SECS (23.9-33.8)
[2021-01-10 06:33] LABS: Basophils # 0.1 10*3/uL (0.0-0.2); Basophils % 0.8 % (0.0-0.8); Eosinophils # 0.2 10*3/uL (0.0-0.87); Eosinophils % 3.3 % (0.00-10.9); Hematocrit 32.6 VOL% (35.7-47.0); Hemoglobin 9.9 GM/DL (12.0-16.0); Immature Granulocytes % 0.2 %; Immature Granulocytes Absolute 0.01 #; Lymphocytes # 1.6 10*3/uL (1.4-4.0); Lymphocytes % 23.6 % (21.3-54.2); Mean Corpuscular HGB Conc 30.4 GM/DL (32-36); Mean Corpuscular Volume 74.1 FL (87-102); Mean Platelet Volume 9.8 FL (9.6-12.0); Monocytes % 10.8 % (1.7-12.7); Neutrophils % 61.3 % (38.7-73.9); Platelet Count 394 T/CUMM (130-400); Red Cell Distribution Width 17.3 % (9.3-17.3); White Blood Count 6.7 T/CUMM (4-12)
[2021-01-10 06:35] LABS: Alanine Aminotransferase 29 U/L (13-56); Albumin 3.7 G/DL (3.4-5.0); Alkaline Phosphatase 116 U/L (45-117); Aspartate Amino Transferase 43 U/L (0-37); Bilirubin,Total < 0.39 MG/DL (0.20-1.00); Blood Urea Nitrogen 11 MG/DL (7-18); Calcium 9.1 MG/DL (8.5-10.1); Carbon Dioxide 25 MMOL/L (21-32); Estimated Glom Filtration Rate 118 ML/MIN; Glucose 81 MG/DL (74-106); Osmolality,Calculated 274.5 MOS/KG (273-304); Potassium 3.9 MMOL/L (3.5-5.1); Sodium 139 MMOL/L (136-145); Total Protein 8.6 G/DL (6.4-8.2)
[2021-01-10] MEDS ORDERED: ONDANSETRON 4 MG/2 ML VIAL ONE (07:07)
[2021-01-10] MEDS ORDERED: HYDROmorphone 2 MG/1 ML VIAL IV STA (07:07)
[2021-01-10] MEDS ORDERED: ONDANSETRON 4 MG/2 ML VIAL IV STA (07:07)
[2021-01-10] MEDS ORDERED: HYDROmorphone 2 MG/1 ML VIAL ONE (07:08)
[2021-01-10] MEDS ORDERED: ACETAMINOPHEN 325 MG TABLET PO PRN (08:34)
[2021-01-10] MEDS ORDERED: diphenhydrAMINE CAP 25 MG CAPSULE PO PRN (08:34)
[2021-01-10] MEDS ORDERED: GLUCAGON 1 MG VIAL IM PRN (08:34)
[2021-01-10] MEDS ORDERED: DEXTROSE 50% 25 GM/50 ML VIAL IV PRN (08:34)
[2021-01-10] MEDS ORDERED: ONDANSETRON 4 MG/2 ML VIAL IV PRN (08:34)
[2021-01-10] MEDS ORDERED: hydrALAZINE 20 MG/1 ML VIAL IV PRN (08:34)
[2021-01-10] MEDS ORDERED: cefTRIAXone 1,000 MG in SODIUM CHLORIDE 0.9% 100 ML IV ONE (10:34)
[2021-01-10] MEDS: SERTRALINE 25 MG TABLET PO SCH (10:53)
[2021-01-10] MEDS: amLODIPine 10 MG TABLET PO SCH (10:53)
[2021-01-10] MEDS: busPIRone 10 MG TABLET PO SCH ×2 (10:53→21:35)
[2021-01-10] MEDS: PANTOPRAZOLE 40 MG TABLET PO SCH (10:53)
[2021-01-10] MEDS: SODIUM CHLORIDE 0.9% 1,000 ML IV SCH (10:54)
[2021-01-10] MEDS: NICOTINE 21 MG/24 HR PATCH TRANSDERM SCH (10:54)
[2021-01-10] MEDS: ALPRAZolam 0.5 MG TABLET PO PRN ×2 (10:58→22:31)
[2021-01-10 11:24] LABS: Hematocrit 29.3 VOL% (35.7-47.0); Hemoglobin 8.7 GM/DL (12.0-16.0)
[2021-01-10] MEDS: PIPERACILLIN/TAZOBACTAM 3,375 MG in SODIUM CHLORIDE 0.9% 100 ML IV SCH ×2 (13:38→19:14)
[2021-01-10] MEDS: GABAPENTIN 400 MG CAPSULE PO SCH ×2 (14:32→21:35)
[2021-01-10] MEDS ORDERED: FLUCONAZOLE 150 MG TABLET PO ONE (14:37)
[2021-01-10] MEDS: PHENAZOPYRIDINE 95 MG TABLET PO SCH (17:09)
[2021-01-10 18:02] LABS: Hematocrit 26.7 VOL% (35.7-47.0); Hemoglobin 8.1 GM/DL (12.0-16.0)
[2021-01-11 00:40] LABS: Hemoglobin 8.8 GM/DL (12.0-16.0)
[2021-01-11] MEDS: PIPERACILLIN/TAZOBACTAM 3,375 MG in SODIUM CHLORIDE 0.9% 100 ML IV SCH ×3 (03:28→21:02)
[2021-01-11 04:58] LABS: Basophils # 0.1 10*3/uL (0.0-0.2); Basophils % 1.2 % (0.0-0.8); Eosinophils # 0.2 10*3/uL (0.0-0.87); Eosinophils % 5.6 % (0.00-10.9); Hematocrit 26.2 VOL% (35.7-47.0); Hemoglobin 7.8 GM/DL (12.0-16.0); Immature Granulocytes % 0.2 %; Immature Granulocytes Absolute 0.01 #; Lymphocytes # 1.3 10*3/uL (1.4-4.0); Lymphocytes % 30.7 % (21.3-54.2); Mean Corpuscular HGB Conc 29.8 GM/DL (32-36); Mean Corpuscular Volume 73.6 FL (87-102); Mean Platelet Volume 9.3 FL (9.6-12.0); Monocytes % 11.9 % (1.7-12.7); Neutrophils % 50.4 % (38.7-73.9); Platelet Count 330 T/CUMM (130-400); Red Blood Count 3.56 MC/CUMM (3.8-5.5); Red Cell Distribution Width 17.2 % (9.3-17.3); White Blood Count 4.3 T/CUMM (4-12)
[2021-01-11 05:19] LABS: Hypochromasia 2+; Microcytosis 1+; Ovalocytes Slight
[2021-01-11 05:20] LABS: Platelet Estimate Normal
[2021-01-11 05:28] LABS: Albumin 2.8 G/DL (3.4-5.0); Bilirubin,Total 0.5 MG/DL (0.20-1.00); Calcium 8.1 MG/DL (8.5-10.1); Osmolality,Calculated 276.4 MOS/KG (273-304); Potassium 4.3 MMOL/L (3.5-5.1); Total Protein 6.5 G/DL (6.4-8.2)
[2021-01-11] MEDS ORDERED: cefTRIAXone 1,000 MG in SODIUM CHLORIDE 0.9% 100 ML IV ONE (06:30)
[2021-01-11] MEDS: NICOTINE 21 MG/24 HR PATCH TRANSDERM SCH (08:54)
[2021-01-11] MEDS: amLODIPine 10 MG TABLET PO SCH (08:55)
[2021-01-11] MEDS: PHENAZOPYRIDINE 95 MG TABLET PO SCH ×3 (08:55→16:35)
[2021-01-11] MEDS: GABAPENTIN 400 MG CAPSULE PO SCH ×3 (08:55→21:01)
[2021-01-11] MEDS: busPIRone 10 MG TABLET PO SCH ×2 (08:55→21:01)
[2021-01-11] MEDS: MORPHINE 2 MG/1 ML SYRINGE IV PRN ×2 (08:56→18:42)
[2021-01-11] MEDS: PANTOPRAZOLE 40 MG TABLET PO SCH (08:56)
[2021-01-11] MEDS: SERTRALINE 25 MG TABLET PO SCH (08:56)
[2021-01-11] MEDS: ALPRAZolam 0.5 MG TABLET PO PRN ×2 (11:14→21:01)
[2021-01-11] MEDS ORDERED: SODIUM CHLORIDE 0.9% 1,000 ML IV PRN (13:01)
[2021-01-11] MEDS: SODIUM CHLORIDE 0.9% 1,000 ML IV SCH ×2 (19:25→21:02)
[2021-01-12] MEDS: SODIUM CHLORIDE 0.9% 1,000 ML IV SCH (05:00)
[2021-01-12] MEDS: PIPERACILLIN/TAZOBACTAM 3,375 MG in SODIUM CHLORIDE 0.9% 100 ML IV SCH (05:11)
[2021-01-12] MEDS: MORPHINE 2 MG/1 ML SYRINGE IV PRN (05:12)
[2021-01-12] MEDS ORDERED: ONDANSETRON 4 MG/2 ML VIAL ONE (06:33)
[2021-01-12] MEDS ORDERED: LIDOCAINE 2% 5 ML VIAL ONE (06:33)
[2021-01-12] MEDS ORDERED: ROCURONIUM 50 MG/5 ML VIAL IV ONE (06:33)
[2021-01-12] MEDS ORDERED: DEXAMETHASONE 4 MG/1 ML VIAL ONE (06:33)
[2021-01-12] MEDS ORDERED: propofoL 200 MG/20 ML VIAL IV ONE (06:33)
[2021-01-12] MEDS ORDERED: SUCCINYLCHOLINE 200 MG/10 ML VIAL ONE (06:33)
[2021-01-12] MEDS ORDERED: fentaNYL 100 MCG/2 ML VIAL ONE (06:34)
[2021-01-12] MEDS ORDERED: MIDAZOLAM 2 MG/2 ML VIAL ONE (06:34)
[2021-01-12] MEDS ORDERED: ACETAMINOPHEN INJ 1,000 MG/100 ML VIAL IV ONE (06:38)
[2021-01-12 06:46] LABS: Basophils # 0.1 10*3/uL (0.0-0.2); Basophils % 1.2 % (0.0-0.8); Eosinophils # 0.2 10*3/uL (0.0-0.87); Eosinophils % 3.5 % (0.00-10.9); Hematocrit 32.5 VOL% (35.7-47.0); Immature Granulocytes % 0.2 %; Immature Granulocytes Absolute 0.01 #; Lymphocytes # 1.3 10*3/uL (1.4-4.0); Lymphocytes % 24.4 % (21.3-54.2); Mean Corpuscular HGB Conc 29.5 GM/DL (32-36); Mean Corpuscular Volume 76.5 FL (87-102); Mean Platelet Volume 9.6 FL (9.6-12.0); Monocytes % 11.7 % (1.7-12.7); Platelet Count 379 T/CUMM (130-400); Red Blood Count 4.25 MC/CUMM (3.8-5.5); Red Cell Distribution Width 18.2 % (9.3-17.3); White Blood Count 5.1 T/CUMM (4-12)
[2021-01-12 07:05] LABS: Hemoglobin 9.6 GM/DL (12.0-16.0)
[2021-01-12 07:08] LABS: Calcium 9.2 MG/DL (8.5-10.1); Osmolality,Calculated 274.7 MOS/KG (273-304); Potassium 4.3 MMOL/L (3.5-5.1)
[2021-01-12 07:22] LABS: Hypochromasia 2+; Microcytosis 1+; Ovalocytes Few; Platelet Estimate Normal
[2021-01-12] MEDS ORDERED: LIDOCAINE 2% TOP JELLY 20 ML VIAL INTRAURETH ONE (07:51)
[2021-01-12] MEDS ORDERED: SEVOFLURANE 1 UNIT/15 MINUTE INH ONE (08:32)
[2021-01-12] MEDS: busPIRone 10 MG TABLET PO SCH (09:00)
[2021-01-12] MEDS ORDERED: HYDROmorphone 2 MG/1 ML VIAL IV PRN (09:03)
[2021-01-12] MEDS ORDERED: OXYBUTYNIN 5 MG TABLET PO PRN (09:04)
[2021-01-12] MEDS: ALPRAZolam 0.5 MG TABLET PO PRN (09:04)
[2021-01-12] MEDS: GABAPENTIN 400 MG CAPSULE PO SCH (09:04)
[2021-01-12] MEDS: amLODIPine 10 MG TABLET PO SCH (09:05)
[2021-01-12] MEDS: SERTRALINE 25 MG TABLET PO SCH (09:05)
[2021-01-12] MEDS: PANTOPRAZOLE 40 MG TABLET PO SCH (09:05)
[2021-01-12] MEDS: PHENAZOPYRIDINE 95 MG TABLET PO SCH ×2 (09:05→12:09)
[2021-01-12] MEDS: NICOTINE 21 MG/24 HR PATCH TRANSDERM SCH (09:05)
[2021-01-12] MEDS ORDERED: NALOXONE 0.4 MG/ML VIAL ONE (11:41)
[2021-01-12 12:06] VITALS: BP 157/109
[2021-01-12] MEDS ORDERED: ESMOLOL 100 MG/10 ML VIAL IV ONE (12:33)
== END 2021-01-12 17:03 | disposition home or self-care (01) ==
LOC: EDBD → EDUNIT# → N.ED 05:06 → N.EDINP 05:06 → SUATTDRO 08:02 → N.3E 08:54
PROVIDERS: ADMIT Hospitalist; ATTEND Internal Medicine